=== PATIENT | female | born 2000 | race African-American/Black ===

== ENCOUNTER → 2022-04-27 | Day surgery (SDC) | payer OTHER ==
[~2022-04-27] MED LIST: Acetaminophen 500 MG TAB ONE; Acetaminophen 500 MG TAB PO SCH; Iron Sucrose Complex 500 MG in Sodium Chloride 0.9% 250 ML 250 ML IVPB SCH
== END ==
LOC: CSHSDC/OP 10:13
PROVIDERS: ATTEND Advanced Practice Midwife
DX: O99.019 Anemia complicating pregnancy, unspecified trimester (principal); D64.9 Anemia, unspecified
CPT/HCPCS: J1756; J7050

== ENCOUNTER 2022-06-21 05:20 | Inpatient (IN) | payer OTHER ==
[2022-06-21] MEDS ORDERED: hydrALAZINE 20 MG/ML VIAL SLOW IVP PRN ×2 (05:48→08:22)
[2022-06-21 05:54] VITALS: BMI 27.0
[2022-06-21] MEDS ORDERED: Acetaminophen 500 MG TAB PO PRN (06:08)
[2022-06-21] MEDS ORDERED: Bupivacaine/Epinephrine 0.25% 30 ML VIAL ONE (08:00)
[2022-06-21] MEDS ORDERED: Promethazine HCl 25 MG/ML VIAL IM PRN ×2 (08:22→13:31)
[2022-06-21] MEDS ORDERED: Ondansetron PF 4 MG/2 ML Vial IVP PRN ×2 (08:22→13:31)
[2022-06-21] MEDS ORDERED: Ibuprofen 800 MG TAB PO PRN (08:22)
[2022-06-21] MEDS ORDERED: HYDROcodone/Acetaminophen 5/325 mg Tablet PO PRN ×2 (08:22)
[2022-06-21] MEDS ORDERED: Methylergonovine 0.2 MG/ML VIAL IM PRN (08:22)
[2022-06-21] MEDS ORDERED: Lidocaine 1% (PF) 30 ML VIAL SC PRN (08:22)
[2022-06-21] MEDS ORDERED: Fentanyl 100 MCG/2 ML VIAL SLOW IVP PRN (08:22)
[2022-06-21] MEDS ORDERED: Misoprostol 200 MCG TAB PR PRN (08:22)
[2022-06-21] MEDS ORDERED: NS w/ Oxytocin 30 units 500 ML IV SCH ×2 (08:30)
[2022-06-21 09:04] LABS: Mean Corpuscular HGB CONC 32.6 g/dL (32.0-36.0); Mean Corpuscular Hemoglobin 26.9 pg (27.0-33.0); Mean Corpuscular Volume 82.5 fl (81.6-98.3); Mean Platelet Volume 9.2 fl (7.4-10.4); Platelet Count 237 10x3/uL (150-450); RBC Distribution Width 18.2 % (11.5-14.5); Red Blood Cell (RBC) Count 4.46 10x6/uL (3.90-5.03); White Blood Cell (WBC) Count 8.5 10x3/uL (3.5-10.5)
[2022-06-21 09:25] LABS: HBSAg Index 0.15 S/CO (0-0.99); Hep B Surf Ag - L&D Non-Reactive S/CO (NonReactive)
[2022-06-21 09:36] LABS: Syphilis Antibody Nonreactive (Nonreactive); Syphilis Antibody Index 0.04 S/CO (<1.00 Non-Reactive)
[2022-06-21] MEDS ORDERED: Acetaminophen 325 MG TAB PO PRN (13:31)
[2022-06-21] MEDS ORDERED: Lactated Ringer's 500 ML IV PRN (13:31)
[2022-06-21] MEDS ORDERED: diphenhydrAMINE 50 MG/ML VIAL IVP PRN (13:31)
[2022-06-21] MEDS ORDERED: Fentanyl 2 mcg/Bup 0.1% Cadd 100 ML ONE (13:31)
[2022-06-21] MEDS ORDERED: ePHEDrine Sulfate 50 MG/10 ML VIAL SLOW IVP PRN (13:31)
[2022-06-21] MEDS ORDERED: Moisturizing Cream (Eucerin) 113 GM JAR TOP PRN (13:31)
[2022-06-21] MEDS ORDERED: Naloxone HCl 0.4 mg/ml Vial IVP PRN ×2 (13:31)
[2022-06-21] MEDS ORDERED: Communication Order-Pharmacy FS SCH (13:45)
[2022-06-21] MEDS: Fentanyl 2 mcg/Bupivacaine 0.1% Cassette 100 ML EPIDURAL SCH ×2 (13:59→21:50)
[2022-06-21] MEDS: Lactated Ringer's 1,000 ML IV SCH (14:04)
[2022-06-22] MEDS ORDERED: NS w/ Oxytocin 30 units 500 ML IV SCH (02:12)
[2022-06-22] MEDS ORDERED: hydrALAZINE 20 MG/ML VIAL SLOW IVP PRN (02:12)
[2022-06-22] MEDS ORDERED: Milk Of Magnesia 30 ML UDCUP PO PRN (02:12)
[2022-06-22] MEDS ORDERED: Ondansetron PF 4 MG/2 ML Vial IVP PRN (02:12)
[2022-06-22] MEDS ORDERED: Lanolin Ointment 7 GM TUBE TOP PRN (02:12)
[2022-06-22] MEDS ORDERED: Benzocaine-Menthol 82.5 ML CAN TOP PRN (02:12)
[2022-06-22] MEDS ORDERED: Boostrix 0.5 ML (Tdap) VIAL (>/=7 yrs of age) IM ONE (02:12)
[2022-06-22] MEDS ORDERED: Bisacodyl 10 MG SUPP PR PRN (02:12)
[2022-06-22] MEDS ORDERED: HYDROcodone/Acetaminophen 5/325 mg Tablet PO PRN ×2 (02:12)
[2022-06-22] MEDS ORDERED: Misoprostol 200 MCG TAB VAG PRN (02:12)
[2022-06-22] MEDS ORDERED: Docusate 100 MG CAP PO SCH (02:30)
[2022-06-22] MEDS ORDERED: Ibuprofen 800 MG TAB PO SCH ×2 (06:00→12:00)
[2022-06-22] MEDS: Lactated Ringer's 1,000 ML IV SCH (07:34)
[2022-06-22] MEDS: Docusate 100 MG CAP PO SCH ×2 (08:27→21:06)
[2022-06-22] MEDS: Prenatal Vitamin 1 TAB PO SCH (08:27)
[2022-06-22] MEDS: Ferrous Sulfate 325 MG TAB PO SCH ×2 (08:29→14:32)
[2022-06-22] MEDS: Ibuprofen 800 MG TAB PO SCH (21:06)
[2022-06-23] MEDS: Ibuprofen 800 MG TAB PO SCH ×2 (06:20→13:55)
[2022-06-23 07:48] VITALS: BP 113/61; TEMP 98.1
[2022-06-23] MEDS: Ferrous Sulfate 325 MG TAB PO SCH (08:18)
[2022-06-23] MEDS: Prenatal Vitamin 1 TAB PO SCH (08:18)
[2022-06-23] MEDS: Docusate 100 MG CAP PO SCH (08:19)
== END 2022-06-23 14:10 | disposition home or self-care (01) | DRG 807 ==
LOC: CSHLD/OP 05:20 → CSHLD 09:04 → CSHPP 06-22 02:15
PROVIDERS: ADMIT Obstetrics & Gynecology; ATTEND Obstetrics & Gynecology
PROC: 10E0XZZ Delivery of Products of Conception, External Approach (ICD-10-PCS; principal; 2022-06-21)
DX: O99.02 Anemia complicating childbirth (principal); Z37.0 Single live birth; Z3A.39 39 weeks gestation of pregnancy; D64.9 Anemia, unspecified
CPT/HCPCS: 51702; 85027; 86780; 86850; 86900; 86901; 87340; 99285; J2590; J7120